=== PATIENT | male | born 1970 | race Hispanic/Latino ===

== ENCOUNTER 2017-12-31 09:11 | Emergency (ER) | payer MEDICAID ==
[2017-12-31] MEDS ORDERED: KETOROLAC TROMETHAMINE 30MG/ML ONE (10:06)
== END 2017-12-31 10:38 | disposition home or self-care (01) ==
LOC: EDH 09:11
DX: H65.22 Chronic serous otitis media, left ear (principal); I10 Essential (primary) hypertension; F20.9 Schizophrenia, unspecified; F31.9 Bipolar disorder, unspecified; Z79.899 Other long term (current) drug therapy; Z72.0 Tobacco use
CPT/HCPCS: 87804 ×2; 96372; 99284; J1885

== ENCOUNTER → 2019-04-09 | Outpatient (CLI) | payer MEDICAID | END | disposition home or self-care (01) | LOC: RAH 10:12 | PROVIDERS: ATTEND Family Medicine | DX: K80.20 Calculus of gallbladder without cholecystitis without obstruction (principal) | CPT/HCPCS: 76705 ==

== ENCOUNTER 2019-06-03 18:00 | Emergency (ER) | payer MEDICAID ==
[2019-06-03] MEDS ORDERED: SILVER SULFADIAZINE CREAM 50 GM TP ONE (18:11)
== END 2019-06-03 19:14 | disposition home or self-care (01) ==
LOC: EDH 18:00
DX: T22.211A Burn of second degree of right forearm, initial encounter (principal); T31.0 Burns involving less than 10% of body surface; F31.9 Bipolar disorder, unspecified; I10 Essential (primary) hypertension; F20.9 Schizophrenia, unspecified; E11.9 Type 2 diabetes mellitus without complications; Z72.0 Tobacco use; X11.8XXA Contact with other hot tap-water, initial encounter; Y93.89 Activity, other specified; Y92.89 Other specified places as the place of occurrence of the external cause; Y99.8 Other external cause status
CPT/HCPCS: 16020

== ENCOUNTER 2019-12-23 12:23 | Emergency (ER) | payer MEDICAID ==
[2019-12-23 12:58] LABS: BASOPHILS % (AUTO) 0.6 % (0.0-5.0); EOSINOPHILS % (AUTO) 2.2 % (0.0-8.0); LYMPHOCYTES % (AUTO) 35.3 % (21.0-51.0); MEAN CORPUSCULAR HEMOGLOBIN 30.5 pg (27.0-33.0); MEAN CORPUSCULAR HGB CONC 35.7 g/dL (32.0-36.0); MEAN CORPUSCULAR VOLUME 85.5 fL (79-99); PLATELET COUNT (AUTO) 262 K/uL (130-400); RED BLOOD CELL COUNT(AUTO) 5.38 MIL/uL (4.50-6.20); RED CELL DISTRIBUTION WIDTH 11.7 % (11.0-15.5); WHITE BLOOD COUNT (AUTO) 6.5 K/uL (4.8-10.8)
[2019-12-23 13:06] LABS: CREATININE 0.8 mg/dL (0.5-1.5); MAGNESIUM 1.9 mg/dL (1.80-2.40); POTASSIUM 4.5 mmol/L (3.5-5.1)
[2019-12-23 13:08] LABS: INR 0.98 (0.85-1.15); PARTIAL THROMBOPLASTIN TIME 27.4 SEC (26.3-35.5); PROTHROMBIN TIME 10.3 SEC (9.6-11.6)
[2019-12-23 13:12] LABS: ALBUMIN 3.8 g/dL (3.5-5.0); BILIRUBIN,TOTAL 0.3 mg/dL (0.2-1.0); TOTAL PROTEIN, SERUM 7.8 g/dL (6.0-8.3)
[2019-12-23] MEDS ORDERED: FOSPHENYTOIN SODIUM 500 MG/10ML VIAL IJ ONE (14:15)
[2019-12-23] MEDS ORDERED: SODIUM CHLORIDE 0.9% 50 ML IV ONE (14:20)
[2019-12-23 15:08] LABS: APPEARANCE,URINE Clear (CLEAR); BILIRUBIN,URINE Negative (NEGATIVE); COLOR,URINE Yellow (YELLOW); GLUCOSE, URINE (UA) Negative (NEGATIVE); KETONES,URINE Negative (NEGATIVE); LEUKOCYTE ESTERASE ,URINE Negative (NEGATIVE); NITRATE,URINE Negative (NEGATIVE); OCCULT BLOOD,URINE Negative (NEGATIVE); PROTEIN,URINE Negative (NEGATIVE); UROBILINOGEN,URINE 0.2 mg/dL (0.2-1.0)
[2019-12-23 15:15] LABS: AMPHET/METH SCREEN,URINE NEGATIVE (NEGATIVE); BARBITURATE SCREEN, URINE NEGATIVE (NEGATIVE); BENZODIAZEPINES SCREEN,URINE POSITIVE (NEGATIVE); CANNABINOID SCREEN,URINE NEGATIVE (NEGATIVE); COCAINE SCREEN,URINE POSITIVE (NEGATIVE); OPIATE SCREEN,URINE NEGATIVE (NEGATIVE); PHENCYCLIDINE SCREEN,URINE NEGATIVE (NEGATIVE)
== END 2019-12-23 16:06 | disposition home or self-care (01) ==
LOC: EDH 12:23
DX: F41.1 Generalized anxiety disorder (principal); F10.129 Alcohol abuse with intoxication, unspecified; R00.2 Palpitations; F14.10 Cocaine abuse, uncomplicated; F20.9 Schizophrenia, unspecified; E11.9 Type 2 diabetes mellitus without complications; F31.9 Bipolar disorder, unspecified; I10 Essential (primary) hypertension; G40.909 Epilepsy, unspecified, not intractable, without status epilepticus; Z72.0 Tobacco use
CPT/HCPCS: 36415; 71045; 80053; 80185; 80305; 81003; 82550; 83735; 84484 ×2; 85025; 85610; 85730; 93005 ×2; 96365; 99285; G0480; Q2009